=== PATIENT | female | born 1975 | race Caucasian/White ===

== ENCOUNTER 2016-12-19 09:50 | Emergency (ER) | payer BC, OTHER ==
[2016-12-19] MEDS ORDERED: KETOROLAC TROMETHAMINE 60 MG/2 ML VIAL IM ONE ×2 (09:57→10:02)
--- NOTE | 2016-12-19 10:02 | ERNOTE ---
Lower Extremity HPI - Narrative Date of Service: 12/19/16 - General Lower Extremities Pain: ankle: left Source: patient Exam Limitations: no limitations - Immun/Allergies/Home Medications Immunizations: IMMUNIZATION HX Immunizations Up to Date Yes Allergies/Adverse Reactions: Allergies Allergy/AdvReac Type Severity Reaction Status Date / Time No Known Allergies Allergy Verified 12/19/16 09:56 Home Medications: HOME MEDICATIONS ALPRAZolam [Xanax] 0.5 mg PO BID PRN 04/18/16 [Last Taken Unknown] Gabapentin [Neurontin] 300 mg PO TID 12/19/16 [Last Taken Unknown] predniSONE [Prednisone] 3 tab PO DAILY #9 tab 12/19/16 [Last Taken Unknown] - History of Present Illness Narrative: Pt. comes in with c/o L lateral ankle pain since she awoke 2 hours ago. Pt. denies any injury, numbnewss tingling, or change with palpation of foot or ankle. Pt. denies any SOB, CP, NVD, fever, recent illness prehospital treatment or alleviaitng factors. Pt. states taht elevating the ankle, ambulating, and movement exacerbate the pain. Review of Systems - Review of Systems Constitutional: Present: no symptoms reported. Absent: recent illness, fever, chills, weakness, fatigue, malaise EYE: Present: no symptoms reported ENT: Present: no symptoms reported Respiratory: Present: no symptoms reported. Absent: shortness of breath, cough , wheezing Cardiology: Present: no symptoms reported. Absent: chest pain, palpitations, edema Gastrointestinal/Abdominal: Present: no symptoms reported. Absent: nausea, vomiting, diarrhea, abdominal pain Genitourinary: Present: no symptoms reported. Absent: frequency, pain, dysuria , decreased urinary output Musculoskeletal: Present: joint pain - L lateral ankle. Absent: back pain Skin: Present: no symptoms reported. Absent: rash, change in color Neurological: Present: no symptoms reported. Absent: headache, dizziness/light- headedness, numbness, tingling Endocrine: Present: no symptoms reported All Other Systems: All systems neg except as marked - Patient's Past Medical History Patient History - Medical: No pertinent hx Patient History - Cardiac/Respiratory: No pertinent hx Patient History - Cancer: No Hx of Cancer Patient History - Surgical Procedures: No surgical history Patient History - Other: None - Social History Living Situations: home Abuse History: No History of abuse Psych History: No pertinent hx Alcohol Use: none Drug Use: none - Immunizations Immunizations Up to Date: Yes Physical Exam - Physical Exam General Appearance: Present: wd/wn, alert, no apparent distress Eye Exam: Normal inspection: bilateral, PERRL: bilateral, EOMI: bilateral Ears, Nose, Throat: Present: normal ENT inspection, normal pharynx. Absent: hearing decreased, abnormal TM (R), abnormal TM (L), nasal congestion Neck: Present: normal inspection, nontender. Absent: lymphadenopathy (R), lymphadenopathy (L) Respiratory: Present: no respiratory distress, normal breath sounds, no accessory muscle use, chest nontender, lungs clear. Absent: rales, rhonchi, wheezing Gastrointestinal/Abdominal: Present: normal bowel sounds, nontender, nondistended, soft, no organomegaly. Absent: mass, hernia, hepatomegaly Back Exam: Present: normal inspection, normal range of motion, no CVA tenderness , no vertebral tenderness Extremity Exam: Present: non-tender, normal range of motion, no edema, other - pt. states pain with resisted ROM. Absent: joint redness, joint swelling Neurological Exam: Present: alert, oriented, normal mood/affect, no motor/ sensory deficits, fuse cutter II-XII nml as tested, normal cerebellar test Skin Exam: Present: normal color, warm/dry. Absent: pallor, skin rash ED Progress - Date and Time Seen: Date and Time: 12/19/16 11:00 Pt. with negative labs and xray. Feel that this is likely re;lated to chronic tendinopathy or chroinic peripheral neuropathy. Pt. has been diagnosed with both in the past in relation to her back and L wrist. Reviewed previous records and feel that pt. needs MRI on outpatient basis to distinguish the diagnosis between the two. - Results and Orders Patient's Lab Results:: I have reviewed the patient's lab results. - Vital Signs Patient's Vital Signs:: I have reviewed the patient's vital signs. Vital Signs: Vital Signs 12/19/16 09:53 Temperature 36.8 C Pulse Rate 100 Respiratory 12 Rate Blood Pressure 121/66 O2 Sat by Pulse 98 Oximetry - X-Ray X-Ray #1 X-Ray: ankle Interpretation: Reviewed by me X-ray Comments: IMPRESSION: Mild anterior soft tissue swelling. No definable fracture. - Progress/Reassessment Chief Complaint: Ankle Injury/ Pain Progress:: Improved Departure Clinical Impression: Tendinopathy Peripheral neuropathy Qualifiers: Peripheral neuropathy type: idiopathic neuropathy, unspecified Qualified Code(s ): G60.9 - Hereditary and idiopathic neuropathy, unspecified - Departure Disposition: Home self-care Condition: Good Instructions: Peripheral Neuropathy, Neuropathic Pain, Tendinitis and Tenosynovitis-SportsMed Additional Instructions: Please follow up with primary provider in 2-3 days. Please take steroids for pain and keep ankle wrapped for three days. Referrals: Dandre Mancia MD [Primary Care Provider] - Prescriptions: predniSONE [Prednisone] 3 tab PO DAILY #9 tab
[2016-12-19 10:15] LABS: Hematocrit 41.8 % (37.0-47.0); Hemoglobin 14.3 gm/dL (12.5-16.0); Mean Cell Volume 90.7 fl (78-100); Mean Corpuscular Hgb Conc 34.2 g/dl (32-36); Mean Platelet Volume 9.6 fl (6.0-9.5); Neutrophil # 4.3 K/mm3 (1.3-6.0); Neutrophil % 64.7 % (42-75.0); Platelet Count 271 K/mm3 (150-450); Red Blood Count 4.61 M/mm3 (4.2-5.4); Red Cell Distribution Width 12.3 % (11.5-14.0); White Blood Count 6.7 K/mm3 (4.0-10.5)
[2016-12-19 10:25] LABS: ALT 21 U/L (19-67); AST 14 U/L (0-48); Alkaline Phosphatase * 51 U/L (50-170); Anion Gap 12.1 mmol/L (6.8-13.8); BUN/Creatinine Ratio 18.9 (9.0-21.6); Bilirubin, Total 0.4 mg/dL (0.0-1.1); Blood Urea Nitrogen 14 mg/dL (3-23); Ca. Corrected For Albumin 8.3 mg/dL (8.4-10.2); Calcium * 8.6 mg/dL (7.9-10.9); Carbon Dioxide 28.7 mmol/L (24-32.6); Chloride 106 mmol/L (97-106); Glucose * 96 mg/dL (70-110); Potassium 3.8 mmol/L (3.4-4.6); Sodium 143 mmol/L (132-142); Total Protein 7.1 gm/dL (6.2-8.2); Uric Acid 4.2 mg/dL (2.6-7.2)
--- OUTSIDE RECORDS SUMMARY | 2016-12-19 10:28 | XMS REPORT | Continuity of Care Document ---
:1975 Author Organization [facility] ([facility]) Address [place] [address] Phone [phone] Care Team Providers Name Role Phone Dandre Mancia Primary Care Provider [phone] Source Comments This disclosure is being made pursuant to the Care Everywhere program, applicable federal and state laws, and may not contain all informaitonavailable regarding this patient.[facility] ([facility]) Active Allergies and Adverse Reactions No Known Allergies Current Medications Prescription Sig. Disp. Refills Start Date End Date Status ALPRAZolam 0.25 mg Take 0.25 mg by mouth Active tablet 3 times daily as needed. gabapentin 300 mg Take 1 Cap by mouth 3 90 Cap 3 12/09/2013 Active capsule times daily. Indications: NEUROPATHIC PAIN Active Problems Problem Noted Date Lumbar radicular pain 12/13/2013 Low back pain 12/13/2013 Social History Tobacco Use Types Packs/Day Years Used Date Current Every Day Smoker Cigarettes 1 19 Smokeless Tobacco: Never Used Tobacco Cessation:Ready to Quit: No; Counseling Given: Yes Comments: Last Filed Vital Signs Vital Sign Reading Time Taken Blood Pressure 128/84 12/09/2013 3:28 PM CDT Pulse 100 12/09/2013 3:28 PM CDT Temperature 37.4 C (99.3 F) 12/09/2013 3:28 PM CDT Respiratory Rate - - Height 1.61 m (5' 3.39") 12/09/2013 3:28 PM CDT Weight 59.875 kg (132 lb) 12/09/2013 3:28 PM CDT Body Mass Index 23.1 12/09/2013 3:28 PM CDT Oxygen Saturation - - Plan of Care Health Maintenance Due Date Last Done Comments Hepatitis B Vaccine (1 of 3 - Primary Series) 1975 Tdap Vaccine 02/03/1988 Lipid Disorder Screening 1995 MMR Vaccine 1995 Td Vaccine 1995 Pneumococcal Vaccine (1 of 1 - PPSV23) 02/03/1996 Cervical Cancer Screening 2007 Influenza Vaccine: Seasonal (#1) 03/07/2016 Results from Last 3 Months Not on file
[2016-12-19 11:40] VITALS: BP 118/72
== END 2016-12-19 11:25 | disposition home or self-care (01) ==
LOC: ER 09:50
DX: M77.9 Enthesopathy, unspecified (principal); G60.9 Hereditary and idiopathic neuropathy, unspecified